=== PATIENT | male | born 1955 | race Caucasian/White ===

== ENCOUNTER 2024-04-10 07:14 | Emergency (ER) | payer OTHER ==
[2024-04-10] MEDS ORDERED: Sodium Chloride 0.9% 10 ML Syringe FLUSH PRN (07:37)
[2024-04-10] MEDS: HYDROmorphone 1 MG/ML Syringe IVPUSH ONE (07:47)
[2024-04-10] MEDS: Ondansetron 4 MG/2 ML SDV IVPUSH ONE (07:47)
[2024-04-10] MEDS: Sodium Chloride 0.9% 1,000 ML IV ONE (08:14)
== END 2024-04-10 10:30 | disposition home or self-care (01) ==
LOC: KA.ED 07:14
DX: S22.089A Unspecified fracture of T11-T12 vertebra, initial encounter for closed fracture (principal); M25.532 Pain in left wrist; Z79.899 Other long term (current) drug therapy; W01.0XXA Fall on same level from slipping, tripping and stumbling without subsequent striking against object, initial encounter; Y93.89 Activity, other specified
CPT/HCPCS: 70450; 71250; 72125; 72131; 73110-LT; 96361; 96374; 96375; 99284-25; J1171; J2405; J7030